=== PATIENT | female | born 1965 | race Caucasian/White ===

== ENCOUNTER 2019-12-25 19:21 | Inpatient (IN) | payer BC, SELFPAY ==
[2019-12-25] MEDS ORDERED: ENOXAPARIN 80 MG/0.8 ML SQ ONE (19:53)
[2019-12-25] MEDS ORDERED: ASPIRIN 81 MG CHEWABLE TABLET ONE (19:53)
[2019-12-25] MEDS ORDERED: METOPROLOL TAR 50 MG TAB ONE (19:53)
--- NOTE | 2019-12-25 20:34 | ER ---
Nurse's Notes [facility] Name: Maribel Seo Age: 54 yrs Sex: Female : 1965 Arrival Date: 12/25/2019 Time: 19:25 Bed 8 Private MD: Diagnosis: Anxiety disorder, unspecified;Chest pain, unspecified;Palpitations;Essential (primary) hypertension Presentation: 12/24 19:28 Chief complaint: Chief complaint: Patient states: HR racing 105-120 been going on for a ca1 month, off and on. Yesterday, there were several episodes of increase HR with SOB, and pain below shoulders. See Dr. Tomas for A-fib. 19:29 Coronavirus screen: Patient denies a cough. Patient denies shortness of breath or ca1 difficulty breathing. Patient denies measured and/or subjective temperature greater than 100.4F prior to today's visit. Patient denies travel on a cruise ship or to a country the [facility] currently lists as an affected area. Patient denies contact with known and/or suspected case of COVID-19. Proceed with normal triage. Ebola Screen: Patient negative for fever greater than or equal to 101.5 degrees Fahrenheit, and additional compatible Ebola Virus Disease symptoms Patient denies exposure to infectious person. Patient denies travel to an Ebola-affected area in the 21 days before illness onset. No symptoms or risks identified at this time. Initial Sepsis Screen: Does the patient meet any 2 criteria? No. Patient's initial sepsis screen is negative. Does the patient have a suspected source of infection? No. Patient's initial sepsis screen is negative. Risk Assessment: Do you want to hurt yourself or someone else? Patient reports no desire to harm self or others. Onset of symptoms was December 25, 2019. 19:29 Method Of Arrival: Ambulatory ca1 19:29 Acuity: JUSTIN 3 ca1 Historical: - Allergies: 19:34 No Known Allergies; ca1 - Home Meds: 19:34 lisinopril 20 mg oral tab 1 tab once daily [Active]; verapamil 240 mg Oral TbER 1 tab ca1 once daily [Active]; Lorazepam Oral [Active]; - PMHx: 19:34 Atrial Fib; Hypertension; ca1 - PSHx: 19:34 Hysterectomy; Cholecystectomy; ca1 - Immunization history:: Adult Immunizations up to date. - Social history:: Smoking status: Patient denies any tobacco usage or history of. - Family history:: not pertinent. Screenin:31 Abuse screen: Denies threats or abuse. Nutritional screening: No deficits noted. jd3 Tuberculosis screening: No symptoms or risk factors identified. Fall Risk Ambulatory Aid- None/Bed Rest/Nurse Assist (0 pts). Gait- Normal/Bed Rest/Wheelchair (0 pts) Mental Status- Oriented to own ability (0 pts). Total Castle Fall Scale indicates No Risk (0-24 pts). Assessment: 20:29 General: Appears in no apparent distress. uncomfortable, Behavior is cooperative, jd3 appropriate for age, anxious. Pain: Complains of pain in chest Quality of pain is described as pressure. Neuro: Level of Consciousness is awake, alert, obeys commands, Oriented to person, place, time, situation. Cardiovascular: Reports chest pain, Capillary refill < 3 seconds Patient's skin is warm and dry. Respiratory: Airway is patent Respiratory effort is even, unlabored, Respiratory pattern is regular, symmetrical, Denies cough. GI: No signs and/or symptoms were reported involving the gastrointestinal system. : No signs and/or symptoms were reported regarding the genitourinary system. EENT: No signs and/or symptoms were reported regarding the EENT system. Derm: Skin is intact, Skin is dry, Skin is normal, Skin temperature is warm. Musculoskeletal: Circulation, motion, and sensation intact. Range of motion: intact in all extremities. 21:21 Reassessment: Patient appears in no apparent distress at this time. Patient and/or jd3 family updated on plan of care and expected duration. Pain level reassessed. Patient is alert, oriented x 3, equal unlabored respirations, skin warm/dry/pink. awaiting results and admission orders. 22:14 Reassessment: Patient appears in no apparent distress at this time. Patient and/or jd3 family updated on plan of care and expected duration. Pain level reassessed. Patient is alert, oriented x 3, equal unlabored respirations, skin warm/dry/pink. Vital Signs: 19:29 BP 132 / 89; Pulse 107; Resp 18 S; Temp 98.8(TE); Pulse Ox 98% on R/A; Weight 81.65 kg ca1 (R); Height 5 ft. 5 in. (165.10 cm) (R); 20:32 BP 119 / 91; Pulse 91; Resp 19 S; Pulse Ox 97% on R/A; jd3 21:21 BP 112 / 75; Pulse 88; Resp 17 S; Pulse Ox 97% on R/A; jd3 22:14 BP 115 / 82; Pulse 75; Resp 18 S; Pulse Ox 95% on R/A; jd3 23:20 BP 109 / 73; Pulse 71; Resp 16 S; Pulse Ox 98% on R/A; jd3 19:29 Body Mass Index 29.95 (81.65 kg, 165.10 cm) ca1 ED Course: 19:25 Patient arrived in ED. ag3 19:32 Triage completed. ca1 19:33 Juan Guerrero MD is Attending Physician. sherly 19:34 Arm band placed on right wrist. ca1 19:42 Kyler Barragan, LAKSHMI is Primary Nurse. rr5 20:28 Eliel Hudson, LAKSHMI is Primary Nurse. jd3 20:29 Inserted saline lock: 20 gauge in right antecubital area, using aseptic technique. jd3 Blood collected. 20:31 Patient has correct armband on for positive identification. Placed in gown. Bed in low jd3 position. Call light in reach. Side rails up X 1. surveillance system monitor on. Pulse ox on. NIBP on. Warm blanket given. Pillow given. Verbal reassurance given. 20:32 Rylee Cintron MD is Hospitalizing Provider. sherly 20:33 XRAY Chest (1 view) In Process Unspecified. EDMS 23:21 No provider procedures requiring assistance completed. Patient admitted, IV remains in jd3 place. Administered Medications: 20:28 Drug: Lovenox 80 mg Route: Sub-Q; Site: abdomen; jd3 21:23 Follow up: Response: No adverse reaction jd3 20:29 Drug: Aspirin Chewable Tablet 324 mg Route: PO; jd3 21:23 Follow up: Response: No adverse reaction jd3 20:29 Drug: Lopressor (metoprolol TARTRATE) 50 mg Route: PO; jd3 21:23 Follow up: Response: No adverse reaction jd3 Outcome: 20:33 Decision to Hospitalize by Provider. sherly 23:21 Admitted to Med/surg accompanied by tech, via wheelchair, room 213, with chart, Report jd3 called to Mariia MARTINS 23:21 Condition: stable 23:21 Instructed on the need for admit, Demonstrated understanding of instructions. 23:51 Patient left the ED. jd3 Signatures: Dispatcher [employer] Juan Patel MD MD cha Davies, Jonathon RN RN jd3 Maria Esther Coffey Raymond, RN RN rr5 Bee Reno RN RN ca1 Corrections: (The following items were deleted from the chart) 19:32 19:28 Chief complaint: ca1 ca1 19:47 19:28 Chief complaint: Patient states: HR raising 105-120 been going on for a month, ca1 off and on. Yesterday, there were several episodes of increase HR with SOB, and pain below shoulders. See Dr. Tomas for A-fib. Chief complaint: Patient states: HR raising 105-120 been going on for a month, off and on. Yesterday, there were several episodes of increase HR with SOB, and pain below shoulders. See Dr. Tomas for A-fib. ca1
--- NOTE | 2019-12-25 20:34 | EDPHYS ---
Physician Documentation [facility] Name: Maribel Seo Age: 54 yrs Sex: Female : 1965 Arrival Date: 12/25/2019 Time: 19:25 Bed 8 Private MD: CHERELLE Physician Juan Guerrero HPI: 12/24 20:25 This 54 yrs old Female presents to ER via Ambulatory with complaints of RAPID sherly HEART RATE. 20:25 The patient or guardian reports chest pain that is located primarily in the anterior sherly chest wall. Onset: 2 day(s) ago. The patient presents with a history of irregular heart beat, heart racing. Context: The symptoms occur at rest. Onset: The symptoms/episode began/occurred 3 day(s) ago. Duration: The patient or guardian reports multiple episodes, that have now resolved. Modifying factors: The symptoms are aggravated by nothing. The symptoms are alleviated by nothing. The pain does not radiate. Associated signs and symptoms: Pertinent positives: anxiety, lightheadedness, SOB. The chest pain is described as a heaviness, a pressure. Historical: - Allergies: 19:34 No Known Allergies; ca1 - Home Meds: 19:34 lisinopril 20 mg oral tab 1 tab once daily [Active]; verapamil 240 mg Oral TbER 1 tab ca1 once daily [Active]; Lorazepam Oral [Active]; - PMHx: 19:34 Atrial Fib; Hypertension; ca1 - PSHx: 19:34 Hysterectomy; Cholecystectomy; ca1 - Immunization history:: Adult Immunizations up to date. - Social history:: Smoking status: Patient denies any tobacco usage or history of. - Family history:: not pertinent. ROS: 20:25 Constitutional: Negative for fever, chills, and weight loss, Eyes: Negative for injury, sherly pain, redness, and discharge, ENT: Negative for injury, pain, and discharge, Neck: Negative for injury, pain, and swelling, Respiratory: Negative for shortness of breath, cough, wheezing, and pleuritic chest pain, Abdomen/GI: Negative for abdominal pain, nausea, vomiting, diarrhea, and constipation, Back: Negative for injury and pain, : Negative for injury, bleeding, discharge, and swelling, MS/Extremity: Negative for injury and deformity, Skin: Negative for injury, rash, and discoloration, Neuro: Negative for headache, weakness, numbness, tingling, and seizure, Psych: Negative for depression, anxiety, suicide ideation, homicidal ideation, and hallucinations, Allergy/Immunology: Negative for hives, rash, and allergies, Endocrine: Negative for neck swelling, polydipsia, polyuria, polyphagia, and marked weight changes, Hematologic/Lymphatic: Negative for swollen nodes, abnormal bleeding, and unusual bruising. 20:25 Cardiovascular: Positive for chest pain, palpitations. 20:25 MS/extremity: Negative for acute changes, injury or acute deformity, decreased range of motion, swelling, tenderness. Exam: 20:25 Constitutional: This is a well developed, well nourished patient who is awake, alert, sherly and in no acute distress. Head/Face: Normocephalic, atraumatic. Eyes: Pupils equal round and reactive to light, extra-ocular motions intact. Lids and lashes normal. Conjunctiva and sclera are non-icteric and not injected. Cornea within normal limits. Periorbital areas with no swelling, redness, or edema. ENT: Nares patent. No nasal discharge, no septal abnormalities noted. Tympanic membranes are normal and external auditory canals are clear. Oropharynx with no redness, swelling, or masses, exudates, or evidence of obstruction, uvula midline. Mucous membranes moist. Neck: Trachea midline, no thyromegaly or masses palpated, and no cervical lymphadenopathy. Supple, full range of motion without nuchal rigidity, or vertebral point tenderness. No Meningismus. Chest/axilla: Normal chest wall appearance and motion. Nontender with no deformity. No lesions are appreciated. Cardiovascular: Regular rate and rhythm with a normal S1 and S2. No gallops, murmurs, or rubs. Normal PMI, no JVD. No pulse deficits. Respiratory: Lungs have equal breath sounds bilaterally, clear to auscultation and percussion. No rales, rhonchi or wheezes noted. No increased work of breathing, no retractions or nasal flaring. Abdomen/GI: Soft, non-tender, with normal bowel sounds. No distension or tympany. No guarding or rebound. No evidence of tenderness throughout. Back: No spinal tenderness. No costovertebral tenderness. Full range of motion. Skin: Warm, dry with normal turgor. Normal color with no rashes, no lesions, and no evidence of cellulitis. MS/ Extremity: Pulses equal, no cyanosis. Neurovascular intact. Full, normal range of motion. Neuro: Awake and alert, GCS 15, oriented to person, place, time, and situation. Cranial nerves II-XII grossly intact. Motor strength 5/5 in all extremities. Sensory grossly intact. Cerebellar exam normal. Normal gait. Psych: Awake, alert, with orientation to person, place and time. Behavior, mood, and affect are within normal limits. 20:25 Musculoskeletal/extremity: DVT Exam: No signs of deep vein thrombosis. no pain, no swelling, no tenderness, negative Homans' sign noted on exam, no appreciated bluish discoloration, no erythema, no increased warmth. 20:34 ECG was reviewed by the Attending Physician. [facility] Vital Signs: 19:29 BP 132 / 89; Pulse 107; Resp 18 S; Temp 98.8(TE); Pulse Ox 98% on R/A; Weight 81.65 kg ca1 (R); Height 5 ft. 5 in. (165.10 cm) (R); 20:32 BP 119 / 91; Pulse 91; Resp 19 S; Pulse Ox 97% on R/A; jd3 21:21 BP 112 / 75; Pulse 88; Resp 17 S; Pulse Ox 97% on R/A; jd3 22:14 BP 115 / 82; Pulse 75; Resp 18 S; Pulse Ox 95% on R/A; jd3 23:20 BP 109 / 73; Pulse 71; Resp 16 S; Pulse Ox 98% on R/A; jd3 19:29 Body Mass Index 29.95 (81.65 kg, 165.10 cm) ca1 MDM: 20:19 Patient medically screened. [facility] 20:31 Data reviewed: vital signs, nurses notes, lab test result(s), EKG, radiologic studies, [facility] plain films. 12/24 19:35 Order name: Basic Metabolic Panel; Complete Time: 22:20 [facility] 12/24 19:35 Order name: CBC with Diff; Complete Time: 22:20 [facility] 12/24 19:35 Order name: LFT's; Complete Time: 22:20 [facility] 12/24 19:35 Order name: Magnesium; Complete Time: 22:20 [facility] 12/24 19:35 Order name: NT PRO-BNP; Complete Time: 22:20 [facility] 12/24 19:35 Order name: Troponin (emerg Dept Use Only); Complete Time: 22:20 [facility] 12/24 19:35 Order name: TSH; Complete Time: 22:20 [facility] 12/24 19:35 Order name: Lipase; Complete Time: 22:20 [facility] 12/24 20:13 Order name: Urine Dipstick--Ancillary (enter results); Complete Time: 22:20 [facility] 12/24 21:40 Order name: Basic Metabolic Panel [facility] 12/24 21:40 Order name: Basic Metabolic Panel [facility] 12/24 21:40 Order name: Lipid Profile [facility] 12/24 21:40 Order name: Lipid Profile [facility] 12/24 21:40 Order name: Troponin I [facility] 12/24 19:35 Order name: XRAY Chest (1 view); Complete Time: 22:20 [facility] 12/24 19:35 Order name: EKG; Complete Time: 19:35 [facility] 12/24 19:35 Order name: Cardiac monitoring; Complete Time: 19:55 [facility] 12/24 19:35 Order name: EKG - Nurse/Tech; Complete Time: 19:55 [facility] 12/24 19:35 Order name: IV Saline Lock; Complete Time: 20:29 [facility] 12/24 19:35 Order name: Labs collected and sent; Complete Time: 20:29 [facility] 12/24 19:35 Order name: O2 Per Protocol; Complete Time: 19:55 [facility] 12/24 19:35 Order name: O2 Sat Monitoring; Complete Time: 19:55 [facility] 12/24 21:40 Order name: Troponin I [facility] 12/24 21:41 Order name: CONS Physician Consult [facility] 12/24 21:41 Order name: NPO [facility] 12/24 21:41 Order name: Echo with Doppler [facility] 12/24 21:41 Order name: EKG Electrocardiogram [facility] 12/24 19:35 Order name: Urine Dipstick-Ancillary (obtain specimen); Complete Time: 20:18 [facility] EC:34 Rate is 97 beats/min. Rhythm is regular. QRS [place] is Normal. [place] interval is normal. QRS sherly interval is normal. QT interval is normal. No Q waves. T waves are Normal. No ST changes noted. Clinical impression: NSR w/ Non-specific ST/T Changes and No evidence of ischemia. Interpreted by me. Reviewed by me. Administered Medications: 20:28 Drug: Lovenox 80 mg Route: Sub-Q; Site: abdomen; jd3 21:23 Follow up: Response: No adverse reaction jd3 20:29 Drug: Aspirin Chewable Tablet 324 mg Route: PO; jd3 21:23 Follow up: Response: No adverse reaction jd3 20:29 Drug: Lopressor (metoprolol TARTRATE) 50 mg Route: PO; jd3 21:23 Follow up: Response: No adverse reaction jd3 Disposition: 12/25/19 20:33 Hospitalization ordered by Rylee Cintron for Observation. Preliminary diagnosis are Anxiety disorder, unspecified, Chest pain, unspecified, Palpitations, Essential (primary) hypertension. - Bed requested for Telemetry/MedSurg (observation). - Status is Observation. jd3 - Condition is Stable. - Problem is new. - Symptoms have improved. Signatures: Dispatcher [employer] EDSD Juan Guerrero MD MD cha Garcia, Cindy, RN RN cg Davies, Jonathon, RN RN jBee Connor RN RN ca1 Corrections: (The following items were deleted from the chart) 22:49 20:33 Hospitalization Ordered by Rylee Cintron MD for Observation. Preliminary cg diagnosis is Anxiety disorder, unspecified; Chest pain, unspecified; Palpitations; Essential (primary) hypertension. Bed requested for Telemetry/MedSurg (observation). Status is Observation. Condition is Stable. Problem is new. Symptoms have improved. [facility] 23:51 22:49 12/25/2019 20:33 Hospitalization Ordered by Rylee Cintron MD for Observation. jd3 Preliminary diagnosis is Anxiety disorder, unspecified; Chest pain, unspecified; Palpitations; Essential (primary) hypertension. Bed requested for Telemetry/MedSurg (observation). Status is Observation. Condition is Stable. Problem is new. Symptoms have improved. cg
--- NOTE | 2019-12-25 20:43 | RAD REPORT ---
EXAM DESCRIPTION: Luis Alfredo Single View12/25/2019 8:33 pm CLINICAL HISTORY: Chest pain COMPARISON: none FINDINGS: The lungs appear clear of acute infiltrate. The heart is normal size IMPRESSION: No acute abnormalities displayed
[2019-12-25 20:57] LABS: Absolute Lymphocytes (CBC) 2.9 K/uL (0.7-4.9); Basophils % 0.5 % (0-1.3); Hematocrit 43.5 % (36.0-45.0); Lymphocytes % 35.2 % (15.3-44.8); MPV 9.1 fL (7.6-11.3); RBC Red Blood Cell Count 4.91 M/uL (3.86-4.86)
[2019-12-25 21:11] LABS: Urine Blood NEGATIVE (NEG); Urine Glucose NEGATIVE (NEG); Urine Protein NEGATIVE (NEG); Urine Specific Gravity 1.025 (1.005-1.030); Urine pH 6.5 (5.0-7.0)
[2019-12-25 21:23] LABS: ALT/SGPT 49 U/L (12-78); AST/SGOT 28 U/L (15-37); Albumin 3.8 g/dL (3.4-5.0); Alkaline Phosphatase 67 U/L (45-117); BUN Blood Urea Nitrogen 21 mg/dL (7-18); Bicarbonate 25 mmol/L (21-32); Bilirubin Direct < 0.1 mg/dL (0-0.2); Bilirubin Total 0.4 mg/dL (0.2-1.0); Glucose Level 106 mg/dL (74-106); Lipase 226 U/L (73-393); Magnesium 2.2 mg/dL (1.8-2.4); NT PRO-BNP 25 pg/mL (<125); Protein, Total 7.7 g/dL (6.4-8.2); Sodium Level 141 mmol/L (136-145); Troponin (Emerg Dept Use Only) < 0.02 ng/mL (0.0-0.045)
[2019-12-25] MEDS ORDERED: MORPHINE 4 MG/ML SYR IV PRN (21:35)
[2019-12-25] MEDS ORDERED: ACETAMINOPHEN 500 MG TAB PO PRN (21:35)
[2019-12-25] MEDS ORDERED: ALPRAZOLAM 0.25 MG TABLET PO PRN (21:35)
[2019-12-25] MEDS: METOPROLOL TAR 50 MG TAB PO SCH (23:00)
[2019-12-25 23:45] VITALS: BMI 36.1
--- NOTE | 2019-12-26 05:38 | P.HP ---
Certification for Inpatient Patient admitted to: Observation With expected LOS: <2 Midnights Patient will require the following post-hospital care: None Practitioner: I am a practitioner with admitting privileges, knowledge of patient current condition, hospital course, and medical plan of care. Services: Services provided to patient in accordance with Admission requirements found in Title 42 Section 412.3 of the Code of Federal Regulations Patient History Date of Service: 12/25/19 Reason for admission: Chest pain rule out acute coronary syndrome History of Present Illness: Patient is a 54-year-old female who came to the hospital with chest discomfort. Pain was mainly the sternal region. She denies shortness of breath. Patient denies diaphoresis. Patient was admitted to the hospital for cardiac catheterization. Allergies No Known Allergies Allergy (Verified 12/26/19 00:05) Home Medications: Lisinopril [Zestril] 20 mg PO DAILY 12/26/19 Verapamil HCl [Verapamil ER] 240 mg PO DAILY 12/26/19 - Past Medical/Surgical History Has patient received pneumonia vaccine in the past: No Diabetic: No -: Atrial fibrillation -: Hypertension -: cholecystectomy 2009 -: partial hysterectomy 1988 - Family History Father Medical History: Heart disease, Hypertension Mother Medical History: Heart disease, Hypertension - Social History Smoking Status: Never smoker Alcohol use: Yes Place of Residence: Home Review of Systems 10-point ROS is otherwise unremarkable Physical Examination - Vital Signs Temperature: 97.3 F Blood Pressure: 99/56 Pulse: 69 Respirations: 18 Pulse Ox (%): 96 - Physical Exam General: Alert, In no apparent distress, Oriented x3 HEENT: Atraumatic, PERRLA, Mucous membr. moist/pink, EOMI, Sclerae nonicteric Neck: Supple, 2+ carotid pulse no bruit, No LAD, Without JVD or thyroid abnormality Respiratory: Clear to auscultation bilaterally, Normal air movement Cardiovascular: Regular rate/rhythm, Normal S1 S2, No murmurs Gastrointestinal: Normal bowel sounds, Soft and benign, Non-distended, No tenderness Musculoskeletal: No clubbing, No swelling, No tenderness Integumentary: No rashes Neurological: Normal gait, Normal speech, Normal strength at 5/5 x4 extr, Normal tone, Normal affect Lymphatics: No axilla or inguinal lymphadenopathy - Studies Laboratory Data (last 24 hrs) 12/25/19 20:21: WBC 8.2, Hgb 14.6, Hct 43.5, Plt Count 275 12/25/19 20:21: Sodium 141, Potassium 4.0, BUN 21 H, Creatinine 0.97, Glucose 106, Magnesium 2.2, Total Bilirubin 0.4, AST 28, ALT 49, Alkaline Phosphatase 67, Lipase 226 Assessment & Plan - Problems (Diagnosis) (1) Chest pain, rule out acute myocardial infarction Status: Acute - Plan Plan: - Serial troponins and EKG - Appreciate Cardiology consultation - Proceed with cardiac catheterization in morning - Anti-platelet therapy, anti coagulation, beta-wayne, statin, and O2 as needed - IV morphine for pain - Nitro p.r.n. Discharge Plan: Home Plan to discharge in: 24 Hours - Advance Directives Does patient have a Living Will: No Does patient have a Durable POA for Healthcare: No - Code Status/Comfort Care Code Status Assessed: Yes Code Status: Full Code Critical Care: No Time Spent Managing PTS Care (In Minutes): 45
[2019-12-26] MEDS: METOPROLOL TAR 50 MG TAB PO SCH (05:49)
[2019-12-26 05:50] LABS: Absolute Lymphocytes (CBC) 3.3 K/uL (0.7-4.9); Basophils % 0.7 % (0-1.3); Lymphocytes % 49.2 % (15.3-44.8); MPV 8.9 fL (7.6-11.3); RBC Red Blood Cell Count 4.55 M/uL (3.86-4.86)
[2019-12-26 06:06] LABS: BUN Blood Urea Nitrogen 21 mg/dL (7-18); Bicarbonate 25 mmol/L (21-32); Glucose Level 88 mg/dL (74-106); HDL Cholesterol 31 mg/dL (40-60); LDL Cholesterol, Calculated 133 (<130); Sodium Level 140 mmol/L (136-145); Troponin I < 0.02 ng/mL (0.0-0.045)
[2019-12-26] MEDS ORDERED: HEPA 1000U/500MLS 1,000 UNIT/500 ML BAG IV ONE (06:31)
[2019-12-26] MEDS ORDERED: FENTANYL CITR 100 MCG/2 ML ONE (06:32)
[2019-12-26] MEDS ORDERED: NA CHLORIDE 0.9% 0 ML ONE (06:32)
[2019-12-26] MEDS ORDERED: LIDOCAINE 1% MPF 30 ML VIAL ONE (06:32)
[2019-12-26] MEDS ORDERED: ATROPINE SULF 1 MG/10 ML SYR IV ONE (06:32)
[2019-12-26] MEDS ORDERED: MIDAZOLAM HCL 2 MG/2 ML INJ ONE ×3 (06:32→07:50)
[2019-12-26] MEDS ORDERED: NA CHLORIDE 0.9% 500 ML ONE (06:55)
--- NOTE | 2019-12-26 08:40 | CON ---
Reason For Consultation: Unstable angina. History Of Present Illness: Ms. Seo is a 54-year-old woman has a history of paroxysmal atrial fib rillation, hypertension, strong family history of heart disease, dyslipidemia, obesity, was admitted with chest pain radiating to both shoulders and the back with some diaphoresis and shortness of breat h with and without exertion, has ruled out for [place] with normal EKG, normal chest x-ray, and normal tro ponin. Her symptoms, however, suggestive of acute coronary artery syndrome and she was admitted for further evaluation and treatment. Past Medical History: As stated above. Allergies: NONE. Review of Systems: Negative. Social History: Negative. Family History: Positive for heart disease. Medications: At home include lisinopril and verapamil. Physical Examination: Vital Signs: Stable, afebrile, sinus rhythm. HEENT: Negative. Neck: Supple, with no bruit. Chest: Clear. Cardiac: Revealed a regular rhythm and rate with an S4 gallop. No murmurs or rubs. Abdomen: Obese, but benign. Extremities: Revealed no clubbing, cyanosis, or edema. Diagnostic Data: Unremarkable. Impression And Plan: Ms. Seo is a patient who has hypertension, family history, paroxysmal atrial fibrillation, and dyslipidemia. She is at high risk for developing coronary artery disease, symptom s suggestive of coronary artery disease. We will proceed with a left heart catheterization to define her coronary anatomy. The patient understands the risks and the benefits of the procedure and she a grees to proceed. We will see what her catheterization shows before making further decisions. SHERITA/BITA Voice ID: [id number] Report ID: [id number]
[2019-12-26] MEDS ORDERED: ASPIRIN EC 81 MG TAB PO SCH (09:00)
[2019-12-26] MEDS ORDERED: ENOXAPARIN 40 MG/0.4 ML SQ SCH (09:00)
[2019-12-26] MEDS ORDERED: CLOPIDOGREL 75 MG TABLET PO SCH (09:00)
[2019-12-26 09:53] VITALS: O2SAT 97
--- NOTE | 2019-12-26 10:01 | P.DS ---
Discharge Date: 12/26/19 Disposition: ROUTINE DISCHARGE Discharge Condition: GOOD Vital Signs/Physical Exam: Temp Pulse Resp BP Pulse Ox 97.4 F 63 15 108/65 96 12/26/19 08:35 12/26/19 09:50 12/26/19 09:50 12/26/19 09:50 12/26/19 05:38 Laboratory Data at Discharge: WBC 6.6 K/uL (4.3-10.9) D 12/26/19 05:23 Hgb 13.9 g/dL (12.0-15.0) 12/26/19 05:23 Hct 40.0 % (36.0-45.0) 12/26/19 05:23 Plt Count 238 K/uL (152-406) 12/26/19 05:23 APTT 36.8 SECONDS (24.3-36.9) 12/26/19 05:23 Sodium 140 mmol/L (136-145) 12/26/19 05:23 Potassium 4.0 mmol/L (3.5-5.1) 12/26/19 05:23 BUN 21 mg/dL (7-18) H 12/26/19 05:23 Creatinine 0.76 mg/dL (0.55-1.3) 12/26/19 05:23 Glucose 88 mg/dL (74-106) 12/26/19 05:23 Magnesium 2.2 mg/dL (1.8-2.4) 12/25/19 20:21 Total Bilirubin 0.4 mg/dL (0.2-1.0) 12/25/19 20:21 AST 28 U/L (15-37) 12/25/19 20:21 ALT 49 U/L (12-78) 12/25/19 20:21 Alkaline Phosphatase 67 U/L (45-117) 12/25/19 20:21 Troponin I < 0.02 ng/mL (0.0-0.045) 12/26/19 05:23 Triglycerides 376 mg/dL (<150) H 12/26/19 05:23 Cholesterol 239 mg/dL (<200) H 12/26/19 05:23 HDL Cholesterol 31 mg/dL (40-60) L 12/26/19 05:23 Cholesterol/HDL Ratio 7.71 12/26/19 05:23 Lipase 226 U/L (73-393) 12/25/19 20:21 Home Medications: Lisinopril [Zestril] 20 mg PO DAILY 12/26/19 Verapamil HCl [Verapamil ER] 240 mg PO DAILY 12/26/19 Patient Discharge Instructions: OK TO DC IV AND DC HOME. FOLLOW-UP WITH PRIMARY CARE PROVIDER IN 1-2 WEEKS. FOLLOW-UP WITH CARDIOLOGY IN 1-2 WEEKS. RETURN TO THE ER IF. CALL or TEXT DR. BABB AT [phone] IF ANY QUESTIONS REGARDING HOSPITAL STAY. PLEASE CALL THE FLOOR AT [phone] IF ANY MEDICATION OR NURSING QUESTIONS.
--- NOTE | 2019-12-26 10:14 | OP ---
Surgeon: Buck Tomas MD Plant Tech: Prabhjot Mesa. Procedure: Inpatient left heart catheterization with selective coronary arteriogram. Indication: Chest pain consistent with unstable angina. Description Of Procedure: Ms. Seo is 54, has a history of hypertension, dyslipidemia, paroxysmal atrial fibrillation, obesity, family history of heart disease, came in with typical story for acute c oronary syndrome, normal EKG, normal troponin. Nevertheless, taken to the clinical lab assistant today as an inpat ient, prepped and draped in the routine sterile fashion. Given 4 mg of Versed and 25 of fentanyl for IV sedation. A 6-Danish sheath was introduced in the right common femoral artery after 20 cc of Xyl ocaine. Angiography there was normal. Angio-Seal was used to close the case. JL3.5 catheter was us ed to cannulate the left main. The left main was normal. Circumflex, OM, and diagonals were normal. She had some mild plaquing in the proximal LAD. A JR4 catheter was used to select the right main. The RCA showed a 30% proximal RCA stenosis. It was a nondominant vessel. The patient tolerated the procedure well. There were no complications. Blood Loss: 5 cc. Postoperative Diagnosis: Mild coronary artery disease. Plan: Plan is for medical therapy. The patient will be going home today after 2 hours of bedrest. Anesthesia: Total conscious sedation was 30 minutes. SHERITA/BITA Voice ID: [id number] Report ID: [id number]
[2019-12-26 13:40] VITALS: TEMP 97.3
--- NOTE | 2019-12-26 15:03 | EKG ---
Test Date: 2019-12-25 Test Time: 19:51:30 Timing Inspector: ALPA MEASUREMENT RESULTS: Intervals: Rate: 97 IL: 164 QRSD: 92 QT: 350 QTc: 444 [place]: P: 55 IL: 164 QRS: 17 T: 39 INTERPRETIVE STATEMENTS: Normal sinus rhythm Normal ECG No previous ECG available for comparison Electronically Signed On 12-26-19 15:02:42 CDT by Buck Tomas
[2019-12-26] MEDS ORDERED: ATORVASTATIN 40 MG TAB PO SCH (21:00)
--- NOTE | 2019-12-27 12:51 | ECHO ---
HEIGHT: 5 ft 5 in WEIGHT: 217 lb 3.2 oz DATE OF STUDY: 12/26/[address]: Rylee Cintron MD 2-DIMENSIONAL: YES M.MODE: YES DOPPLER: YES COLOR FLOW: YES TDS: PORTABLE: DEFINITY: BUBBLE STUDY: DIAGNOSIS: CHEST PAIN CARDIAC HISTORY: CATHERIZATION: YES SURGERY: NO PROSTHETIC VALVE: NO PACEMAKER: NO MEASUREMENTS (cm) DIASTOLIC (NORMALS) SYSTOLIC (NORMALS) IVSd 0.8 (0.6-1.2) LA Diam 3.2 (1.9-4.0) LVEF 60% LVIDd 4.7 (3.5-5.7) LVIDs 3.2 (2.0-3.5) %FS 32% LVPWd 1.0 (0.6-1.2) Ao Diam 2.5 (2.0-3.7) 2 DIMENSIONAL ASSESSMENT: RIGHT ATRIUM: NORMAL LEFT ATRIUM: NORMAL RIGHT VENTRICLE: NORMAL LEFT VENTRICLE: NORMAL TRICUSPID VALVE: NORMAL MITRAL VALVE: NORMAL PULMONIC VALVE: NORMAL AORTIC VALVE: NORMAL PERICARDIAL EFFUSION: NONE AORTIC ROOT: NORMAL LEFT VENTRICULAR WALL MOTION: NORMAL DOPPLER/COLOR FLOW: NORMAL COMMENTS: NORMAL 2-DIMENSIONAL ECHOCARDIOGRAM WITH DOPPLER. NO WALL MOTION ABNORMALITY. NO EFFUSION. TECHNOLOGIST: ALIYAH RODRIGUEZ
[2020-01-03 02:03] VITALS: BP 99/56
--- NOTE | 2020-01-03 02:06 | P.DS ---
Discharge Date: 12/26/19 Disposition: ROUTINE DISCHARGE Discharge Condition: GOOD Reason for Admission: Chest pain rule out acute coronary syndrome Consultations: Cardiology - Problems (1) Chest pain, rule out acute myocardial infarction Status: Acute Brief History of Present Illness: Patient is a 54-year-old female who came to the hospital with chest discomfort. Pain was mainly the sternal region. She denies shortness of breath. Patient denies diaphoresis. Patient was admitted to the hospital for cardiac catheterization. Hospital Course: Patient was seen by cardiology and had a cardiac catheterization performed. Cardiac catheterization revealing mild coronary artery disease. At this time, patient is stable for discharge with outpatient followup. Vital Signs/Physical Exam: Temp Pulse Resp BP Pulse Ox 97.3 F 69 18 99/56 L 96 01/03/20 02:02 01/03/20 02:02 01/03/20 02:02 01/03/20 02:02 01/03/20 02:02 General: Alert, In no apparent distress, Oriented x3 Laboratory Data at Discharge: WBC 6.6 K/uL (4.3-10.9) D 12/26/19 05:23 Hgb 13.9 g/dL (12.0-15.0) 12/26/19 05:23 Hct 40.0 % (36.0-45.0) 12/26/19 05:23 Plt Count 238 K/uL (152-406) 12/26/19 05:23 APTT 36.8 SECONDS (24.3-36.9) 12/26/19 05:23 Sodium 140 mmol/L (136-145) 12/26/19 05:23 Potassium 4.0 mmol/L (3.5-5.1) 12/26/19 05:23 BUN 21 mg/dL (7-18) H 12/26/19 05:23 Creatinine 0.76 mg/dL (0.55-1.3) 12/26/19 05:23 Glucose 88 mg/dL (74-106) 12/26/19 05:23 Magnesium 2.2 mg/dL (1.8-2.4) 12/25/19 20:21 Total Bilirubin 0.4 mg/dL (0.2-1.0) 12/25/19 20:21 AST 28 U/L (15-37) 12/25/19 20:21 ALT 49 U/L (12-78) 12/25/19 20:21 Alkaline Phosphatase 67 U/L (45-117) 12/25/19 20:21 Troponin I < 0.02 ng/mL (0.0-0.045) 12/26/19 05:23 Triglycerides 376 mg/dL (<150) H 12/26/19 05:23 Cholesterol 239 mg/dL (<200) H 12/26/19 05:23 HDL Cholesterol 31 mg/dL (40-60) L 12/26/19 05:23 Cholesterol/HDL Ratio 7.71 12/26/19 05:23 Lipase 226 U/L (73-393) 12/25/19 20:21 Home Medications: Lisinopril [Zestril] 20 mg PO DAILY 12/26/19 Verapamil HCl [Verapamil ER] 240 mg PO DAILY 12/26/19 Patient Discharge Instructions: OK TO DC IV AND DC HOME. FOLLOW-UP WITH PRIMARY CARE PROVIDER IN 1-2 WEEKS. FOLLOW-UP WITH CARDIOLOGY IN 1-2 WEEKS. RETURN TO THE ER IF SYMPTOMS WORSENS. CALL or TEXT DR. BABB AT [phone] IF ANY QUESTIONS REGARDING HOSPITAL STAY. PLEASE CALL THE FLOOR AT [phone] IF ANY MEDICATION OR NURSING QUESTIONS. Diet: AHA Activity: Fall precautions Followup: Carlos Wang MD [OUTSIDE PHYSICIAN] - Time spent managing pt's care (in minutes): 20
== END 2019-12-26 12:27 | disposition home or self-care (01) | DRG 287 ==
LOC: ER 19:21 → ERHOLD 21:35 → 2ND 23:24 → OBSVTOIN 12-26 07:31
PROVIDERS: ADMIT Hospitalist; ATTEND Hospitalist
PROC: 4A023N7 Measurement of Cardiac Sampling and Pressure, Left Heart, Percutaneous Approach (ICD-10-PCS; principal; 2019-12-26)
PROC: B2111ZZ Fluoroscopy of Multiple Coronary Arteries using Low Osmolar Contrast (ICD-10-PCS; 2019-12-26)
DX: I25.10 Atherosclerotic heart disease of native coronary artery without angina pectoris (principal); I10 Essential (primary) hypertension; I48.0 Paroxysmal atrial fibrillation; E78.5 Hyperlipidemia, unspecified; Z90.49 Acquired absence of other specified parts of digestive tract; Z90.711 Acquired absence of uterus with remaining cervical stump; Z79.899 Other long term (current) drug therapy; Z11.59 Encounter for screening for other viral diseases
CPT/HCPCS: 36415; 71045; 80048; 80061; 80076; 81003; 83690; 83735; 83880; 84443; 84484; 85025; 85730; 93005; 93306; 93454; 96372; 99285; C1760; C1893; G0378; J0583; J1644; J2250; J3010; J7040; U0002